=== PATIENT | female | born 1970 | race African-American/Black ===

== ENCOUNTER 2025-05-20 09:19 | Outpatient (CLI) | payer MEDICAID ==
[2025-05-20] MEDS ORDERED: ALBUTEROL SULF 2.5 MG/0.5ML(0.5%) NEB SOLN ONE (09:31)
== END 2025-05-20 17:00 | disposition home or self-care (01) ==
LOC: RT 09:19
PROVIDERS: ATTEND Internal Medicine
DX: J44.9 Chronic obstructive pulmonary disease, unspecified (principal)
CPT/HCPCS: 94060; 94727; 94729